=== PATIENT | female | born 2005 | race African-American/Black ===

== ENCOUNTER 2025-01-14 21:24 | Emergency (ER) | payer MEDICAID ==
[~2025-01-14] VITALS: Ht 162.6 cm; Wt 54.5 kg
[2025-01-14 21:36] VITALS: TEMP 97.7
[2025-01-14 22:34] VITALS: BP 146/71; PULSE 87; RESP 26; O2SAT 100
[2025-01-14 23:46] LABS: PLATELET COUNT (AUTO) 241 K/uL (150-450); RED BLOOD CELL COUNT(AUTO) 5.18 MIL/uL (4.00-5.20); RED CELL DISTRIBUTION WIDTH 19.6 % (11.5-14.5); WHITE BLOOD COUNT (AUTO) 7.1 K/uL (4.5-11.0)
[2025-01-14 23:47] LABS: RBC MORPHOLOGY COMMENT ABNORMAL RBC MORPH
[2025-01-14 23:55] LABS: CALCIUM, TOTAL 9.1 mg/dL (8.8-10.5); CREATININE 0.84 mg/dL (0.60-1.30); GLOMERULAR FILTR. RATE CALC > 60 mL/min (>60); GLUCOSE,RANDOM 91 mg/dL (70-110); SODIUM SERUM 140 mmol/L (136-145); UREA NITROGEN, BLOOD 9 mg/dL (7-18)
[2025-01-15] LABS: ASPARTATE AMINOTRANSFERASE 21.0 U/L (15-37); TOTAL PROTEIN, SERUM 7.8 g/dL (6.4-8.2)
[2025-01-15] MEDS: POTASSIUM CHLORIDE 20 MEQ ER TABLET PO ONE (00:12)
[2025-01-15] MEDS: ONDANSETRON 4 MG TABLET PO ONE (00:16)
== END 2025-01-15 00:27 | disposition home or self-care (01) ==
LOC: EMS 21:24
DX: F41.9 Anxiety disorder, unspecified (principal); E87.6 Hypokalemia; Y09 Assault by unspecified means
CPT/HCPCS: 99283; 80048; 80076; 84703; 85025; 36415; Q0162